=== PATIENT | male | born 1995 | race Two or more races ===

== ENCOUNTER 2018-01-04 14:25 | Emergency (ER) | payer SELFPAY ==
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
[2018-01-04 16:25] VITALS: BP 137/77; PULSE 90; RESP 18; TEMP 97.9; O2SAT 97
== END 2018-01-04 16:00 | disposition home or self-care (01) ==
DX: S06.0X9A Concussion with loss of consciousness of unspecified duration, initial encounter (principal); V00.322A Snow-skier colliding with stationary object, initial encounter; Y99.8 Other external cause status; Y93.23 Activity, snow (alpine) (downhill) skiing, snowboarding, sledding, tobogganing and snow tubing